=== PATIENT | male | born 1955 | race African-American/Black ===

== ENCOUNTER 2022-06-09 19:20 | Emergency (ER) | payer MEDICARE, MEDICAID ==
[~2022-06-09] VITALS: Ht 170.2 cm; Wt 73.0 kg
[~2022-06-09 19:20] MED LIST: AMLO10TA80 PO; AMLODIPINE PO; ASA PO; ASPI-1497 PO; ATEN50TA PO; ATENOLOL PO; GABA-532 PO; HYDR12.54 PO; HYDR50TA PO; LISI10TA26 PO; OMEP20CA14 PO; PRAV20TA57 PO; PRAV40TA58 PO
[2022-06-09] MEDS ORDERED: TRAM50TA3 MT (22:04)
[2022-06-09] MEDS ORDERED: GABA-529 MT (22:04)
[2022-06-09 22:12] VITALS: BP 213/92
[2022-06-09] MEDS ORDERED: GABAPENTIN 300MG CAPSULE PO ONE (22:15)
[2022-06-09] MEDS ORDERED: TRAMADOL 50MG TABLET PO ONE (22:15)
== END 2022-06-09 22:31 | disposition home or self-care (01) ==
LOC: ER 19:20
DX: R60.0 Localized edema (principal); I10 Essential (primary) hypertension; Z86.73 Personal history of transient ischemic attack (TIA), and cerebral infarction without residual deficits
CPT/HCPCS: 99283

== ENCOUNTER 2022-06-29 17:40 | Emergency (ER) | payer MEDICARE, OTHER ==
[~2022-06-29] VITALS: Ht 170.2 cm; Wt 73.0 kg
[~2022-06-29 17:40] MED LIST changes: +GABA-529 MT; +TRAM50TA3 MT
[2022-06-29] MEDS ORDERED: HYDROCODONE/ACETAMINOPHEN 10/325MG TABLET PO ONE (21:30)
[2022-06-29 22:02] LABS: HEMATOCRIT 41.3 % (42.0-52.0); HEMOGLOBIN 13.9 g/dL (14.0-18.0); MEAN CORPUSCULAR HEMOGLOBIN 33.9 pg (28.0-32.0); MEAN CORPUSCULAR VOLUME 100.5 fL (80.0-94.0); PLATELET 403 x1000/uL (130-400); RED BLOOD CELL COUNT 4.11 mill/uL (4.7-6.1); RED CELL DISTRIBUTION WIDTH 13.4 % (11.6-14.6)
[2022-06-29 22:10] LABS: CHLORIDE 112 mEq/L (98-107)
[2022-06-29] MEDS ORDERED: VANCOMYCIN 1G PREMIX 200 ML IV SCH (22:15)
[2022-06-29] MEDS ORDERED: CLONIDINE 0.2MG TABLET PO ONE (22:45)
[2022-06-29] MEDS ORDERED: MORPHINE SULFATE 4 MG/ML CPJ (NOT FOR IM USE) IV ONE (23:45)
[2022-06-30 03:59] VITALS: BP 149/89
== END 2022-06-30 04:02 | disposition left against medical advice (07) ==
LOC: ER 17:40
DX: A48.0 Gas gangrene (principal); I10 Essential (primary) hypertension; Z20.822 Contact with and (suspected) exposure to COVID-19; Z95.1 Presence of aortocoronary bypass graft; I25.10 Atherosclerotic heart disease of native coronary artery without angina pectoris; Z86.73 Personal history of transient ischemic attack (TIA), and cerebral infarction without residual deficits; Z99.3 Dependence on wheelchair; Z79.899 Other long term (current) drug therapy
CPT/HCPCS: 36415; 73630; 80053; 83605; 84145; 85027; 87040; 87426; 96365; 96375; 99285; C9803; J2270; J3370

== ENCOUNTER 2022-07-05 13:36 | Emergency (ER) | payer MEDICARE, OTHER ==
[~2022-07-05] VITALS: Ht 170.2 cm; Wt 75.0 kg
[2022-07-05] MEDS ORDERED: HYDROCODONE/ACETAMINOPHEN 5/325MG TABLET PO STA (14:10)
[2022-07-05] MEDS ORDERED: ASPIRIN 81MG TABLET PO ONE (14:15)
[2022-07-05] MEDS ORDERED: PIPERACILLIN/TAZOBACTAM 3.375GM/50ML PREMIX IV NR (14:15)
[2022-07-05 14:25] LABS: EOSINOPHILS % 2.2 % (0.0-5.0); HEMATOCRIT. 41.9 % (42.0-52.0); HEMOGLOBIN. 14.5 g/dL (14.0-18.0); LYMPHOCYTES % 18.1 % (20.0-50.0); MEAN CORPUSCULAR HEMOGLOBIN 34.3 pg (28.0-32.0); MEAN CORPUSCULAR VOLUME 99.1 fL (80.0-94.0); MEAN PLATELET VOLUME 8.1 fl (7.4-10.4); MONOCYTES % 8.2 % (2.0-8.0); NEUTROPHILS % 70.5 % (40.0-76.0); PLATELET 412 x1000/uL (130-400); RED BLOOD CELL COUNT 4.23 mill/uL (4.7-6.1); RED CELL DISTRIBUTION WIDTH 13.3 % (11.6-14.6)
[2022-07-05 14:29] LABS: CHLORIDE 106 mEq/L (98-107)
[2022-07-05 14:30] LABS: PROTHROMBIN TIME 10.6 sec (9.6-11.0)
[2022-07-05] MEDS ORDERED: HYDROCODONE/ACETAMINOPHEN 5/325MG TABLET PO ONE (15:30)
[2022-07-05 17:27] VITALS: BP 158/89
== END 2022-07-05 18:50 | disposition short-term general hospital (02) ==
LOC: ER 13:36 → CANBEDREQ 23:14
DX: E11.52 Type 2 diabetes mellitus with diabetic peripheral angiopathy with gangrene (principal); I96 Gangrene, not elsewhere classified; I20.0 Unstable angina; I11.0 Hypertensive heart disease with heart failure; I50.9 Heart failure, unspecified; Z79.84 Long term (current) use of oral hypoglycemic drugs; Z79.82 Long term (current) use of aspirin; Z79.899 Other long term (current) drug therapy
CPT/HCPCS: 36415; 71045; 80053; 84484; 85025; 85610; 87040; 93005; 96374; 99285; J2543; Z7610

== ENCOUNTER 2022-08-09 13:56 | Emergency (ER) | payer MEDICARE, OTHER ==
[~2022-08-09] VITALS: Ht 177.8 cm; Wt 78.0 kg
[2022-08-09 14:11] VITALS: BP 184/67
== END 2022-08-09 20:09 | disposition left against medical advice (07) ==
LOC: ER 13:56
DX: Z53.21 Procedure and treatment not carried out due to patient leaving prior to being seen by health care provider (principal)

== ENCOUNTER 2022-08-20 17:42 | Emergency (ER) | payer MEDICARE, OTHER ==
[~2022-08-20] VITALS: Ht 170.2 cm; Wt 75.0 kg
[2022-08-20 19:28] LABS: BASOPHILS % 1.1 % (0.0-2.0); EOSINOPHILS % 2.4 % (0.0-5.0); HEMATOCRIT. 36.3 % (42.0-52.0); HEMOGLOBIN. 12.3 g/dL (14.0-18.0); LYMPHOCYTES % 14.6 % (20.0-50.0); MEAN CORPUSCULAR HEMOGLOBIN 34.1 pg (28.0-32.0); MEAN CORPUSCULAR VOLUME 100.4 fL (80.0-94.0); MEAN PLATELET VOLUME 8.6 fl (7.4-10.4); MONOCYTES % 8.3 % (2.0-8.0); NEUTROPHILS % 73.6 % (40.0-76.0); PLATELET 504 x1000/uL (130-400); RED BLOOD CELL COUNT 3.62 mill/uL (4.7-6.1)
[2022-08-20 19:35] LABS: CHLORIDE 104 mEq/L (98-107)
[2022-08-20] MEDS ORDERED: VANCOMYCIN 1G PREMIX 200 ML IV SCH (21:45)
[2022-08-20] MEDS ORDERED: CEFEPIME 1,000 MG in DEXTROSE 5% WATER 50 ML IV SCH (21:45)
[2022-08-20] MEDS ORDERED: LORA10TA7 PO (21:51)
[2022-08-20] MEDS ORDERED: ATOR20TA65 PO (21:51)
[2022-08-20] MEDS ORDERED: CLON-457 MT (21:56)
[2022-08-20] MEDS ORDERED: KETOROLAC 15MG/ML VIAL IV ONE (22:45)
[2022-08-20 22:52] VITALS: BP 159/60
== END 2022-08-20 23:43 | disposition short-term general hospital (02) ==
LOC: ER 17:42
DX: M79.675 Pain in left toe(s) (principal); I11.0 Hypertensive heart disease with heart failure; I50.9 Heart failure, unspecified; Z86.73 Personal history of transient ischemic attack (TIA), and cerebral infarction without residual deficits; Z79.899 Other long term (current) drug therapy
CPT/HCPCS: 36415; 71045; 73660; 80053; 83880; 84484; 85025; 93005; 96365; 96375; 99291; J0692; J1885; J7060

== ENCOUNTER 2022-09-07 11:55 | Emergency (ER) | payer MEDICARE, OTHER ==
[~2022-09-07] VITALS: Ht 170.2 cm; Wt 64.0 kg
[~2022-09-07 11:55] MED LIST changes: +ATOR20TA65 PO; +CLON-457 MT; +LORA10TA7 PO
[2022-09-07] MEDS ORDERED: VANCOMYCIN 1G PREMIX 200 ML IV ONE (12:30)
[2022-09-07] MEDS ORDERED: PIPERACILLIN/TAZ 3.375G PREMIX 50 ML IV ONE (12:30)
[2022-09-07] MEDS ORDERED: SODIUM CHLORIDE 0.9% 1000ML BAG (SEPSIS BOLUS) IV ONE (12:30)
[2022-09-07] MEDS ORDERED: MORPHINE SULFATE 4 MG/ML CPJ (NOT FOR IM USE) IV STA (12:31)
[2022-09-07] MEDS ORDERED: ONDANSETRON HCL 4MG/2ML INJ IV STA (12:31)
[2022-09-07 15:10] LABS: BASOPHILS % 1.2 % (0.0-2.0); HEMATOCRIT. 27.6 % (42.0-52.0); HEMOGLOBIN. 9.4 g/dL (14.0-18.0); LYMPHOCYTES % 13.3 % (20.0-50.0); MEAN CORPUSCULAR HEMOGLOBIN 33.4 pg (28.0-32.0); MEAN CORPUSCULAR VOLUME 98.1 fL (80.0-94.0); MEAN PLATELET VOLUME 7.9 fl (7.4-10.4); MONOCYTES % 11.2 % (2.0-8.0); NEUTROPHILS % 71.3 % (40.0-76.0); PLATELET 461 x1000/uL (130-400); RED BLOOD CELL COUNT 2.82 mill/uL (4.7-6.1); RED CELL DISTRIBUTION WIDTH 13.4 % (11.6-14.6)
[2022-09-07] MEDS ORDERED: ONDANSETRON HCL 4MG/2ML INJ IV NR (15:15)
[2022-09-07] MEDS ORDERED: MORPHINE SULFATE 4 MG/ML CPJ (NOT FOR IM USE) IV NR (15:15)
[2022-09-07] MEDS ORDERED: PIPERACILLIN/TAZ 3.375G PREMIX 50 ML IV NR (15:15)
[2022-09-07 15:18] LABS: INR 1.1; PROTHROMBIN TIME 11.6 sec (9.6-11.0)
[2022-09-07 15:23] LABS: CHLORIDE 106 mEq/L (98-107)
[2022-09-07 17:52] VITALS: BP 129/41
== END 2022-09-07 18:04 | disposition short-term general hospital (02) ==
LOC: ER 11:55
DX: I96 Gangrene, not elsewhere classified (principal); I11.0 Hypertensive heart disease with heart failure; I50.9 Heart failure, unspecified; Z79.899 Other long term (current) drug therapy; Z79.82 Long term (current) use of aspirin; Z86.73 Personal history of transient ischemic attack (TIA), and cerebral infarction without residual deficits
CPT/HCPCS: 36415; 71045; 73630; 80053; 83605; 84145; 84484; 85025; 85610; 86850; 86900; 86901; 87040; 93005; 96365; 96366; 96368; 96375; 99285; J2270; J2405; J2543; J3370; J7030

== ENCOUNTER 2022-09-17 03:41 | Emergency (ER) | payer MEDICARE, OTHER ==
[~2022-09-17] VITALS: Ht 175.3 cm; Wt 64.0 kg
[2022-09-17] MEDS ORDERED: KETOROLAC 60MG/2ML VIAL IM ONE (04:15)
[2022-09-17] MEDS ORDERED: ACETAMINOPHEN 325MG TABLET PO ONE (04:15)
[2022-09-17 05:20] LABS: BASOPHILS % 1.2 % (0.0-2.0); EOSINOPHILS % 2.8 % (0.0-5.0); HEMATOCRIT. 23.5 % (42.0-52.0); HEMOGLOBIN. 8.2 g/dL (14.0-18.0); LYMPHOCYTES % 16.3 % (20.0-50.0); MEAN CORPUSCULAR HEMOGLOBIN 33.9 pg (28.0-32.0); MEAN CORPUSCULAR VOLUME 96.4 fL (80.0-94.0); MEAN PLATELET VOLUME 7.8 fl (7.4-10.4); MONOCYTES % 8.1 % (2.0-8.0); NEUTROPHILS % 71.6 % (40.0-76.0); PLATELET 439 x1000/uL (130-400); RED BLOOD CELL COUNT 2.43 mill/uL (4.7-6.1); RED CELL DISTRIBUTION WIDTH 13.2 % (11.6-14.6)
[2022-09-17 05:28] LABS: CHLORIDE 105 mEq/L (98-107)
[2022-09-17 05:47] VITALS: BP 146/61
[2022-09-17 06:02] LABS: INR 1.1; PROTHROMBIN TIME 11.9 sec (9.6-11.0)
== END 2022-09-17 07:57 | disposition short-term general hospital (02) ==
LOC: ER 03:41 → CANBEDREQ 12:26
DX: L97.519 Non-pressure chronic ulcer of other part of right foot with unspecified severity (principal); Z89.432 Acquired absence of left foot; E11.9 Type 2 diabetes mellitus without complications; E78.00 Pure hypercholesterolemia, unspecified; I10 Essential (primary) hypertension; Z79.899 Other long term (current) drug therapy; Z20.822 Contact with and (suspected) exposure to COVID-19
CPT/HCPCS: 36415; 73630; 80053; 82962; 85025; 85610; 85651; 86850; 86900; 86901; 87426; 96372; 99284; C9803; J1885

== ENCOUNTER 2022-10-11 20:02 | Emergency (ER) | payer MEDICARE, OTHER ==
[~2022-10-11] VITALS: Ht 170.2 cm; Wt 68.0 kg
[2022-10-11] MEDS ORDERED: KETOROLAC 30MG/ML VIAL IV STA (21:10)
[2022-10-11] MEDS ORDERED: SODIUM CHLORIDE 0.9% 1,000 ML IV ONE (21:15)
[2022-10-11 21:30] LABS: BASOPHILS % 0.7 % (0.0-2.0); EOSINOPHILS % 1.2 % (0.0-5.0); HEMATOCRIT. 28.8 % (42.0-52.0); HEMOGLOBIN. 9.7 g/dL (14.0-18.0); LYMPHOCYTES % 18.4 % (20.0-50.0); MEAN CORPUSCULAR HEMOGLOBIN 31.7 pg (28.0-32.0); MEAN CORPUSCULAR VOLUME 94.4 fL (80.0-94.0); MEAN PLATELET VOLUME 7.6 fl (7.4-10.4); MONOCYTES % 7.9 % (2.0-8.0); NEUTROPHILS % 71.8 % (40.0-76.0); PLATELET 522 x1000/uL (130-400); RED BLOOD CELL COUNT 3.05 mill/uL (4.7-6.1); RED CELL DISTRIBUTION WIDTH 14.4 % (11.6-14.6)
[2022-10-11 21:35] LABS: CHLORIDE 104 mEq/L (98-107)
[2022-10-12] MEDS ORDERED: LEVO750T68 MT (01:44)
[2022-10-12] MEDS ORDERED: TOPUD MT (01:44)
[2022-10-12] MEDS ORDERED: POLY17PO3 MT (01:44)
[2022-10-12] MEDS ORDERED: METR-167 MT (01:44)
[2022-10-12] MEDS ORDERED: NA P133E4 RC (01:44)
[2022-10-12] MEDS ORDERED: LEVOFLOXACIN 750MG PREMIX 150 ML IV ONE (01:45)
[2022-10-12] MEDS ORDERED: METRONIDAZOLE 500 MG PREMIX 100 ML IV ONE (01:45)
[2022-10-12] MEDS ORDERED: KETOROLAC 30MG/ML VIAL IV NR (02:45)
[2022-10-12 02:59] LABS: CLARITY URINE CLOUDY (CLEAR); COLOR URINE YELLOW (YELLOW); KETONES URINE NEGATIVE (NEGATIVE); LEUKOCYTE ESTERASE URINE NEGATIVE (NEGATIVE); NITRITE URINE NEGATIVE (NEGATIVE); OCCULT BLOOD URINE NEGATIVE (NEGATIVE); PROTEIN URINE NEGATIVE (NEGATIVE); SPECIFIC GRAVITY URINE 1.016 (1.005-1.030)
[2022-10-12 09:47] VITALS: BP 134/66
== END 2022-10-12 10:53 | disposition home or self-care (01) ==
LOC: ER 20:02
DX: R10.12 Left upper quadrant pain (principal); K59.00 Constipation, unspecified; K52.9 Noninfective gastroenteritis and colitis, unspecified; E11.9 Type 2 diabetes mellitus without complications; E78.00 Pure hypercholesterolemia, unspecified; I10 Essential (primary) hypertension; Z79.899 Other long term (current) drug therapy
CPT/HCPCS: 36415; 74176; 80053; 81003; 83690; 85025; 96365; 96366; 96367; 96375; 99284; J1885; J1956; J3490; J7030

== ENCOUNTER 2022-11-09 21:30 | Emergency (ER) | payer MEDICARE, OTHER ==
[~2022-11-09] VITALS: Ht 170.2 cm; Wt 74.0 kg
[~2022-11-09 21:30] MED LIST changes: +LEVO750T68 MT; +METR-167 MT; +NA P133E4 RC; +POLY17PO3 MT; +TOPUD MT
[2022-11-09 21:48] VITALS: BP 145/79
[2022-11-10] MEDS ORDERED: IBUPROFEN 600MG TABLET PO ONE (01:30)
[2022-11-10] MEDS ORDERED: TETANUS, DIPHTHERIA, PERTUSSIS VAC/PF 0.5ML (>10YR OLD) IM ONE (01:45)
== END 2022-11-10 03:15 | disposition home or self-care (01) ==
LOC: ER 21:30
DX: S91.311A Laceration without foreign body, right foot, initial encounter (principal); W22.8XXA Striking against or struck by other objects, initial encounter; E13.621 Other specified diabetes mellitus with foot ulcer; L97.519 Non-pressure chronic ulcer of other part of right foot with unspecified severity; I10 Essential (primary) hypertension; Y93.89 Activity, other specified; Y92.89 Other specified places as the place of occurrence of the external cause; Z99.3 Dependence on wheelchair; Z89.9 Acquired absence of limb, unspecified; Z79.899 Other long term (current) drug therapy
CPT/HCPCS: 90471; 90715; 99283

== ENCOUNTER 2024-01-14 21:39 | Emergency (ER) | payer MEDICARE, OTHER ==
[~2024-01-14] VITALS: Ht 121.9 cm; Wt 66.0 kg
[~2024-01-14 21:39] MED LIST changes: -CLON-457 MT; +CLON-493 MT
[2024-01-14 21:43] VITALS: BP 192/69; PULSE 77; RESP 16; TEMP 98.2; O2SAT 100
[2024-01-14] MEDS ORDERED: CYCLOBENZAPRINE 10MG TABLET PO ONE (23:15)
[2024-01-15] MEDS ORDERED: CYCL10TA21 MT (01:35)
== END 2024-01-14 23:50 | disposition home or self-care (01) ==
LOC: ER 21:39
DX: M79.605 Pain in left leg (principal); E11.9 Type 2 diabetes mellitus without complications; E78.00 Pure hypercholesterolemia, unspecified; I10 Essential (primary) hypertension; Z79.899 Other long term (current) drug therapy
CPT/HCPCS: 73562; 93971; 99284